=== PATIENT | male | born 1940 | race Caucasian/White ===

== ENCOUNTER → 2017-09-25 12:55 | Outpatient (CLI) | payer MEDICARE, OTHER, SELFPAY ==
[2017-09-25 14:15] LABS: Absolute Lymphocyte Count 1.63 X10^3/ul (0.83-4.51); Absolute Neutrophil Count 1.7 X10^3/uL (2.0-7.7); Basophil# 0.04 X10^3/uL; Basophil% 0.9 % (0-1); Eosinophil# 0.38 X10^3/uL; Eosinophils% 8.8 % (0-5); Hematocrit 37.5 % (40-54); Hemoglobin 12.7 g/dl (13.0-16.5); Lymphocyte # 1.63 X10^3/ul (4.0); Lymphocyte % 37.8 % (19-41); Mean Corp Hgb Conc 33.9 g/gl (32-36); Mean Corpuscular Volume 88.7 fL (80-94); Monocyte% 11.6 % (0-10); Neutrophil # 1.71 X10^3/uL (2.7-7.7); Neutrophil % 39.7 % (47-70); Platelet Count 269 K/mm3 (150-450); RBC Distribution Width SD 44.9 fl (35.1-43.9); Red Blood Count 4.23 M/mm3 (4.6-6.2); White Blood Count 4.3 K/mm3 (4.4-11.0)
[2017-09-25 14:18] LABS: POSITIVE COUNT NO; POSITIVE DIFFERENTIAL NO; POSITIVE MORPHOLOGY NO
[2017-09-25 14:23] LABS: ALB/GLOB Ratio 0.7 RATIO (0.9-2.4); AST(SGOT) 24 U/L (15-37); Alanine Aminotransfer ALT/SGPT 38 U/L (16-61); Albumin, Serum 3.2 g/dL (3.2-5.0); Alkaline Phosphatase 73 U/L (45-117); Anion Gap 7 (5-15); BUN 17 mg/dL (7-18); BUN/Creat Ratio 12.1 RATIO (10-20); Calcium,Total 9.2 mg/dL (8.5-10.1); Chloride 105 mmol/L (98-107); EST Glomerular Filtration Rate 53 mL/min (>60); Est Glom Filt Rate - Afr Amer 64 mL/min (>60); Globulin 4.6 g/dL (2.2-4.2); Glucose 228 mg/dL (74-106); Potassium 4.7 mmol/L (3.5-5.1); Protein, Total 7.8 g/dL (6.4-8.2); Sodium Level 139 mmol/L (136-145)
== END ==
PROVIDERS: Family Provider Nurse Practitioner Adult Health; PCP Nurse Practitioner Adult Health; Visit Provider Internal Medicine Rheumatology
DX: M06.4 Inflammatory polyarthropathy (principal); M15.9 Polyosteoarthritis, unspecified; E11.9 Type 2 diabetes mellitus without complications; I10 Essential (primary) hypertension; E78.5 Hyperlipidemia, unspecified; F32.89 Other specified depressive episodes; J44.9 Chronic obstructive pulmonary disease, unspecified; G47.33 Obstructive sleep apnea (adult) (pediatric); Z87.11 Personal history of peptic ulcer disease; R42 Dizziness and giddiness
CPT/HCPCS: 36415; 80053; 85025; 97110; 97140

== ENCOUNTER → 2017-09-27 11:08 | Outpatient (CLI) | payer MEDICARE, OTHER, SELFPAY | PROVIDERS: Family Provider Nurse Practitioner Adult Health; PCP Nurse Practitioner Adult Health | DX: R19.7 Diarrhea, unspecified (principal) | CPT/HCPCS: 82274; 83630; 87177; 87209; 87493; 87506 ==

== ENCOUNTER → 2017-10-23 09:14 | Outpatient (CLI) | payer MEDICARE, OTHER, SELFPAY | PROVIDERS: Family Provider Nurse Practitioner Adult Health; PCP Nurse Practitioner Adult Health | DX: R19.7 Diarrhea, unspecified (principal); R42 Dizziness and giddiness | CPT/HCPCS: 82705; 87177; 87209; 97530 ==

== ENCOUNTER 2017-10-23 10:00 | Outpatient (RCR) | payer MEDICARE, OTHER, SELFPAY ==
--- NOTE | 2017-08-13 10:32 | HP.PTEVAL_ITS ---
Patient's Visit Information GABRIEL RIVAS Jr. is a 77 year old M referred to Physical Therapy by ABBI Schneider with a diagnosis of dizziness. Date of Evaluation: 08/13/17 Physical Therapist: Rere Merritt - Visit Plan Frequency: 2x /Week Duration: 4-6 Weeks Plan: 2X/ week for 4-6 weeks for VOR exercises especially rene in the vertical plan, vestibular balance exercises, functional activities with head turns and eye movments with HEP. - Subjective Subjective: Pt reports that he still has a lot of dizziness and not walking straight. Recently he thinks that it has been getting worse. He is dizzy sitting in a chair currently (not normally the case) and he thinks that it was more the eye movement getting back here than just sitting. He has been doing his exercises at home here and there from the last time. No falls. The dizziness lasts 3-5 minutes when it comes on. Sometimes, not all the time rolling to one side will bring on the dizziness. He gets dizzy when looking down at the floor or if he looks the L worse than the R. No HATFIELD. Uses the walking stick all the time. He feels that he has some weakness more in his feet than anywhere else. If he looks down going up or down the steps then he will get dizzy but if he looks straight ahead he will not get dizzy. 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 He has no ringing in his ears. He is not sure about the feeling of pressure. - Objective - HALLPIKE B for dizziness or nystagmus. Pt did have some dizziness on return from the Hallpike position but it was prob a blood pressure change and subsided quickly. FGA: 12. CATSIB: 65/120. Horizontal smooth pursuit (4/10 scale for dizziness) could tell that pt slowed down and blinked more with fatigue but able to get to the 60 sec wally.. Vertical pursuit (8/10 scale for dizziness) only could make about 15 seconds and could not follow the wally and blinked more. Repeated X 3 attempts (2nd time was able to go longer and rated about 7/10) (3rd time he rated 6/10 this time and felt a little sick to stomach) ...... Seemed that L eye was a little more slower comapred to the R eye. LE mmt: Able to half normal ROM heel and toe rise with SBA. B hip flex 4+/5, B knee flex and B knee ext 4+/5. - Balance Scores Functional Gait Assessment Score: 12 % Disability: 60.0000 CATSIB Score (Max score 120 seconds): 65 - Goals Goal 1:: I HEP Goal Time Frame: 4-6 Weeks Goal 2:: Increase FGA by 5 points to decrease fall risk (increase score to 17) Goal Time Frame: 4-6 Weeks Goal 3:: Be able to complete 1 min of smooth pursuit eye movement in a vertical plane with 1/10 or less dizziness Goal Time Frame: 4-6 Weeks Goal 4:: Be able to stand and look up and down X 20 times with no LOB and 1/10 dizziness Goal Time Frame: 4-6 Weeks Goal 5:: Be able to stand on foam without UE support X 1 min without LOB or using her UE's for support Goal Time Frame: 4-6 Weeks - Rehabilitation Potential Rehabilitation Potential: Good - Anticipated Interventions Patient/Client Instruction: Educate patient on: Plan of Care For the Purpose of:: To improve muscle performance and motor function, To improve ability to perform ADL's, To increase tolerance to activity/condition/ position, To improve performance and independence with ADL's, To improve ability of physical actions for home/community/work/leisure, To improve gait and locomotor functions, To improve balance, To improve safety with gait Therapeutic Exercise to Include: Strength training, Balance training, Gait and locomotor training, Neuromotor development For the Purpose of:: To improve muscle performance and motor function, To improve ability to perform ADL's, To increase tolerance to activity/condition/ position, To improve performance and independence with ADL's, To improve gait and locomotor functions, To improve balance, To improve safety with gait Functional Training to Include: Gait training For the Purpose of:: To improve gait and locomotor functions, To improve safety with gait Thank you for the opportunity to evaluate your patient. For Medicare and Medicare HMO plans, please review the plan of care and approve it. It will need to be FAXED BACK to us at [phone] for Medicare purposes. Please let me know if there are questions or concerns regarding this plan of care. Physician Signature: Date:
--- NOTE | 2017-10-23 12:13 | HP.PTDCSUM ---
HP - PT D/C Summary It has been my pleasure to treat GABRIEL RIVAS Jr. under orders from ABBI Schneider, for the diagnosis of dizziness for a total of 19 visit(s). Discharge Date: 10/23/17 Please see the following information for a summary of their discharge status. - Subjective Subjective: Pt reports that he has some good days and some bad days. He reports that he has some dizziness everyday at some point in that day that typically varies (5 min- 1 hour). He reports that looking up and down is worse and closing eyes is even worse than that. He feels that some of the c-spine stuff that we did with the neck does help for about a day. He got a home over the door traction unit and has tried it once and feels that it did help him. - Pain hip pain Pain Intensity (Out of 10): 4 - Overall Improvement % Improvement: 45 - Objective Objective/Function: Gait: pt walks with WBOS with increased side to side gait pattern with occ veering. FGA: 16 ( pt did get dizzy with walking and vertical head turns). Standing vertical head VOR X 1 min with no dizziness. Discussed POC for HEP. - Goals Goal 1:: I HEP Goal Progress: Goal Met Goal 2:: Increase FGA by 5 points to decrease fall risk (increase score to 17) Goal Progress: Progressing Goal 3:: Be able to complete 1 min of smooth pursuit eye movement in a vertical plane with 1/10 or less dizziness Goal Progress: Goal Met Goal 4:: Be able to stand and look up and down X 20 times with no LOB and 1/10 dizziness Goal Progress: Goal Met Goal 5:: Be able to stand on foam without UE support X 1 min without LOB or using her UE's for support Goal Progress: Goal Met - Plan Plan: DC PT to home with home over the door traction unit and continue with VOR exercises. - D/C Information Discharge Comments: DC PT to HEP. If there are questions or concerns regarding this patient's physical therapy, please feel free to call me at [phone]. Thank you for the referral of this patient. Sincerely, Rere Merritt
== END 2017-10-23 19:00 | disposition home or self-care (01) ==
LOC: PT 10:00
PROVIDERS: Family Provider Nurse Practitioner Adult Health; PCP Nurse Practitioner Adult Health; Visit Provider Nurse Practitioner Acute Care
DX: R42 Dizziness and giddiness (principal)
CPT/HCPCS: 97110; 97140; 97162; 97530

== ENCOUNTER → 2017-11-05 09:05 | Outpatient (CLI) | payer MEDICARE, OTHER, SELFPAY | PROVIDERS: Family Provider Nurse Practitioner Adult Health; PCP Nurse Practitioner Adult Health | DX: R19.7 Diarrhea, unspecified (principal) ==

== ENCOUNTER → 2018-10-27 | Outpatient (CLI) | payer MEDICARE, OTHER, SELFPAY ==
[2018-10-27 17:30] LABS: Absolute Lymphocyte Count 1.66 X10^3/uL (0.83-4.51); Absolute Neutrophil Count 3.5 X10^3/uL (2.0-7.7); Basophil# 0.12 X10^3/uL; Basophil% 1.8 % (0-1); Eosinophil# 0.47 X10^3/uL; Eosinophils% 7.1 % (0-5); Hematocrit 36.6 % (40-54); Hemoglobin 12.2 g/dL (13.0-16.5); Lymphocyte # 1.66 X10^3/ul (4.0); Lymphocyte % 25.1 % (19-41); Mean Corp Hgb Conc 33.3 g/dL (32-36); Mean Corpuscular Hgb 29.9 pg (27.0-32.0); Mean Corpuscular Volume 89.7 fL (80-94); Mean Platelet Vol. 10.3 fl (6.2-12.0); Monocyte# 0.81 X10^3/uL; Monocyte% 12.2 % (0-10); NRBC Flagged by Analyzer 0 % (0-5); Neutrophil # 3.48 X10^3/uL (2.7-7.7); Neutrophil % 52.6 % (47-70); Platelet Count 319 K/mm3 (150-450); RBC Distribution Width CV 16.3 % (11.6-14.6); RBC Distribution Width SD 52.6 fl (35.1-43.9); Red Blood Count 4.08 M/mm3 (4.6-6.2); White Blood Count 6.6 K/mm3 (4.4-11.0)
[2018-10-27 17:44] LABS: ALB/GLOB Ratio 0.8 RATIO (0.9-2.4); AST(SGOT) 24 U/L (15-37); Alanine Aminotransfer ALT/SGPT 43 U/L (16-61); Albumin, Serum 3.4 g/dL (3.2-5.0); Alkaline Phosphatase 62 U/L (45-117); Anion Gap 8 (5-15); BUN 23 mg/dL (7-18); BUN/Creat Ratio 18.5 RATIO (10-20); Calcium,Total 9.3 mg/dL (8.5-10.1); Chloride 110 mmol/L (98-107); Creatinine, Serum 1.24 mg/dL (0.70-1.30); EST Glomerular Filtration Rate 60 mL/min (>60); Est Glom Filt Rate - Afr Amer 73 mL/min (>60); Glucose 140 mg/dL (74-106); Potassium 4.4 mmol/L (3.5-5.1); Protein, Total 7.4 g/dL (6.4-8.2); Sodium Level 143 mmol/L (136-145)
== END | disposition home or self-care (01) ==
LOC: MTLAB 14:36
PROVIDERS: Family Provider Nurse Practitioner Adult Health; PCP Nurse Practitioner Adult Health; Referring Provider Internal Medicine Rheumatology; Visit Provider Internal Medicine Rheumatology
DX: M06.4 Inflammatory polyarthropathy (principal); M17.0 Bilateral primary osteoarthritis of knee; E11.9 Type 2 diabetes mellitus without complications; I10 Essential (primary) hypertension; E78.5 Hyperlipidemia, unspecified; F32.89 Other specified depressive episodes; J44.9 Chronic obstructive pulmonary disease, unspecified; G47.33 Obstructive sleep apnea (adult) (pediatric); Z87.11 Personal history of peptic ulcer disease
CPT/HCPCS: 36415; 80053; 85025

== ENCOUNTER → 2020-07-27 11:19 | Outpatient (CLI) | payer MEDICARE, OTHER, SELFPAY ==
[2020-07-27 13:04] LABS: Protein, Urine (Random) 42.9 mg/dL (<11.9); Protein:Creat Ratio 688 mg/g CRE (0-200)
[2020-07-28 16:08] LABS: Anti-Centromere B Ab <0.2 AI (0.0-0.9); Anti-Chromatin <0.2 AI (0.0-0.9); Anti-Jo <0.2 AI (0.0-0.9); Anti-Scleroderma-70 AB <0.2 AI (0.0-0.9); RNP Ab <0.2 AI (0.0-0.9); SJOGREN'S Anti-SS-A test < 0.2 AI (0.0-0.9); SJOGREN'S Anti-SS-B test < 0.2 AI (0.0-0.9); Smith Ab <0.2 AI (0.0-0.9)
[2020-07-28 16:28] LABS: Anti-dsDNA Ab <1 IU/mL (0-9)
[2020-07-29 12:08] LABS: Complement C3 188 mg/dL (82-167); Cytoplasmic Ab (C-ANCA) <1:20 titer (Neg:<1:20)
[2020-07-29 13:01] LABS: Anti-Glomerular Basement Memb 12 units (0-20); Perinuclear Ab (P-ANCA) <1:20 titer (Neg:<1:20)
== END ==
PROVIDERS: PCP Nurse Practitioner Adult Health; Visit Provider Internal Medicine Nephrology
DX: E11.21 Type 2 diabetes mellitus with diabetic nephropathy (principal); R31.29 Other microscopic hematuria
CPT/HCPCS: 36415; 82570; 83520; 84156; 86160; 86225; 86235; 86256

== ENCOUNTER → 2020-08-01 14:52 | Outpatient (CLI) | payer MEDICARE, OTHER, SELFPAY ==
--- NOTE | 2020-08-01 15:00 | US_ITS ---
STUDY: RENAL ULTRASOUND - COMPLETE REASON FOR EXAM: Male, 80 years old. ACUTE ON CHRONIC RENAL FAILURE TECHNIQUE: Ultrasound evaluation of the kidneys was performed with real-time and static grayson-scale imaging. COMPARISON: None. FINDINGS: RIGHT KIDNEY: Normal location of the right kidney, which is normal in size. The right kidney measures 12.0 cm. There is a normal cortex of the right kidney. The renal cortex measures 1.7 cm. There is no right renal mass or cyst. There are no right renal calculi. There is no right hydronephrosis. DISTAL RIGHT URETER: There is non-visualization of the distal right ureter. There is no demonstrated right ureterovesical junction calculus. There is a visualized right ureteral jet. LEFT KIDNEY: Normal location of the left kidney, which is normal in size. The left kidney measures 11.5 cm. There is a normal cortex of the left kidney. The renal cortex measures 1.5 cm. There is no left renal mass or cyst. There are no left renal calculi. There is no left hydronephrosis. DISTAL LEFT URETER: There is non-visualization of the distal left ureter. There is no demonstrated left ureterovesical junction calculus. There is a visualized left ureteral jet. BLADDER: The distended urinary bladder has a volume of 58 ml. The empty urinary bladder has a volume of ml. There is a normal wall thickness of the distended urinary bladder. There is no demonstrated mass within the urinary bladder. There are no demonstrated bladder calculi. US/Kidney and Bladder IMPRESSION: Normal ultrasound of the kidneys and urinary bladder. Electronically Signed: Isidro Ziegler MD at 16:17 EDT Tel , Service support ,
== END ==
PROVIDERS: PCP Nurse Practitioner Adult Health; Referring Provider Internal Medicine Nephrology; Visit Provider Internal Medicine Nephrology
DX: N17.9 Acute kidney failure, unspecified (principal)
CPT/HCPCS: 76770

== ENCOUNTER → 2020-08-25 11:04 | Outpatient (CLI) | payer MEDICARE, OTHER, SELFPAY ==
[2020-08-25 12:19] LABS: Albumin, Serum 3.1 g/dL (3.2-5.0); BUN 27 mg/dL (7-18); BUN/Creat Ratio 14.8 RATIO (10-20); Calcium,Total 9.4 mg/dL (8.5-10.1); Chloride 104 mmol/L (98-107); Creatinine, Serum 1.82 mg/dL (0.70-1.30); EST Glomerular Filtration Rate 39 mL/min (>60); Est Glom Filt Rate - Afr Amer 47 mL/min (>60); Glucose 308 mg/dL (74-106); Phosphorus 2.8 mg/dL (2.5-4.9); Potassium 4.9 mmol/L (3.5-5.1); Sodium Level 135 mmol/L (136-145)
== END ==
PROVIDERS: PCP Nurse Practitioner Adult Health; Visit Provider Internal Medicine Nephrology
DX: N17.9 Acute kidney failure, unspecified (principal)
CPT/HCPCS: 36415; 80069

== ENCOUNTER → 2020-11-04 09:53 | Outpatient (CLI) | payer MEDICARE, OTHER, SELFPAY ==
[2020-11-04 12:14] LABS: Albumin, Serum 3.2 g/dL (3.2-5.0); BUN 37 mg/dL (7-18); BUN/Creat Ratio 18.1 RATIO (10-20); Calcium,Total 9.2 mg/dL (8.5-10.1); Chloride 104 mmol/L (98-107); Creatinine, Serum 2.04 mg/dL (0.70-1.30); EST Glomerular Filtration Rate 34 mL/min (>60); Est Glom Filt Rate - Afr Amer 41 mL/min (>60); Glucose 328 mg/dL (74-106); Phosphorus 2.9 mg/dL (2.5-4.9); Potassium 4.1 mmol/L (3.5-5.1); Sodium Level 135 mmol/L (136-145)
== END ==
PROVIDERS: PCP Nurse Practitioner Adult Health; Referring Provider Internal Medicine Nephrology; Visit Provider Internal Medicine Nephrology
DX: N17.9 Acute kidney failure, unspecified (principal)
CPT/HCPCS: 36415; 80069

== ENCOUNTER → 2021-01-10 14:19 | Outpatient (CLI) | payer MEDICARE, OTHER, SELFPAY ==
[2021-01-10 15:22] LABS: Absolute Lymphocyte Count 1.01 X10^3/uL (0.83-4.51); Absolute Neutrophil Count 6.8 X10^3/uL (2.0-7.7); Basophil# 0.07 X10^3/uL; Basophil% 0.8 % (0-1); Eosinophil# 0.29 X10^3/uL; Eosinophils% 3.3 % (0-5); Hematocrit 32.8 % (40-54); Hemoglobin 9.9 g/dL (13.0-16.5); Lymphocyte # 1.01 X10^3/ul (0.83-4.51); Lymphocyte % 11.4 % (19-41); Mean Corp Hgb Conc 30.2 g/dL (32-36); Mean Corpuscular Volume 89.6 fL (80-94); Mean Platelet Vol. 11.3 fl (6.2-12.0); Monocyte# 0.66 X10^3/uL; Monocyte% 7.4 % (0-10); NRBC Flagged by Analyzer 0 % (0-5); Neutrophil # 6.78 X10^3/uL (2.7-7.7); Neutrophil % 76.3 % (47-70); Platelet Count 321 K/mm3 (150-450); RBC Distribution Width CV 15.9 % (11.6-14.6); RBC Distribution Width SD 51.3 fl (35.1-43.9); Red Blood Count 3.66 M/mm3 (4.6-6.2); White Blood Count 8.9 K/mm3 (4.4-11.0)
[2021-01-10 16:02] LABS: ALB/GLOB Ratio 0.5 RATIO (0.9-2.4); AST(SGOT) 25 U/L (15-37); Alanine Aminotransfer ALT/SGPT 39 U/L (16-61); Albumin, Serum 2.6 g/dL (3.2-5.0); Alkaline Phosphatase 121 U/L (45-117); Anion Gap 6 (5-15); BUN 44 mg/dL (7-18); BUN/Creat Ratio 21.6 RATIO (10-20); Calcium,Total 8.8 mg/dL (8.5-10.1); Chloride 104 mmol/L (98-107); Creatinine, Serum 2.04 mg/dL (0.70-1.30); EST Glomerular Filtration Rate 34 mL/min (>60); Est Glom Filt Rate - Afr Amer 41 mL/min (>60); Glucose 221 mg/dL (74-106); Potassium 5.9 mmol/L (3.5-5.1); Protein, Total 7.6 g/dL (6.4-8.2); Sodium Level 135 mmol/L (136-145)
== END ==
PROVIDERS: PCP Nurse Practitioner Adult Health; Referring Provider Internal Medicine Rheumatology; Visit Provider Internal Medicine Nephrology
DX: M06.4 Inflammatory polyarthropathy (principal); M17.0 Bilateral primary osteoarthritis of knee; E78.5 Hyperlipidemia, unspecified; J44.9 Chronic obstructive pulmonary disease, unspecified; M47.897 Other spondylosis, lumbosacral region; I12.9 Hypertensive chronic kidney disease with stage 1 through stage 4 chronic kidney disease, or unspecified chronic kidney disease; E11.22 Type 2 diabetes mellitus with diabetic chronic kidney disease; N18.32 Chronic kidney disease, stage 3b; Z87.11 Personal history of peptic ulcer disease
CPT/HCPCS: 36415; 80053; 85025